=== PATIENT | female | born 2000 | race Caucasian/White ===

== ENCOUNTER 2025-06-07 11:01 | Outpatient (AMB) | payer BC, SELFPAY ==
--- NOTE | 2025-06-07 11:19 | OBCLNT_ITS ---
Vital Signs 06/07/25 11:27 Height 1.55 m Height Method Stated Weight 106.764 kg Weight Measurement Method Standing Scale BMI 44.4 BP 118/79 Blood Pressure Source Automatic Cuff Blood Pressure Location Left Upper Arm Position Sitting Respiration 16 Pulse 72 Pulse Source Monitor Temp 98 F Temp Source Oral Pulse Oximetry (%) 98 Oxygen Delivery Method Room Air Allergies/Home Meds Allergies & Medications Allergies No Known Allergies Allergy (Verified 06/10/25 10:59) Medication Reconciliation vits no.126-ferrous fum 28 mg iron-folic acid 800 mcg tablet (Classic ) 1 tab PO QDAY 90 days #90 tabs 06/07/25 [Rx Confirmed 06/10/25] Intake Visit Data Collection New Patient or Established: New Patient (never been to [facility]) Reason for Visit:: INITIAL CARE Seen by Clinical Staff ONLY (RN/MA): No Senior Energy Market Coordinator Required: No Do You Feel Safe at Home: Yes Authorities Contacted: N/A PCP or OBGYN visit in last 3 months: Yes Hx Now: Yes Are you currently on any form of Control: No Last menstrual period: 04/10/25 Pain Present Currently: No Pain Scale Used: Corbett-Ortega/Numerical Pain scale:: 0 Smoking Status Smoking Status: Never smoker Questionnaires Covid-19 Vaccine Questionnaire Has patient been vacinated for Covid-19 Have you been vacinated for Covid-19: Yes PHQ-9 PHQ-2 Over the last 2 weeks, how often have you been bothered by any of the following problems? 1. Little interest or pleasure in doing things: not at all 2. Feeling down, depressed, or hopeless: not at all Total score: 0 PHQ-9 3. Trouble falling or staying asleep, or sleeping too much: Not at all 4. Feeling tired or having little energy: Not at all 5. Poor appetite or overeating: Not at all 6. Feeling bad about yourself - or that you are a failure or have let yourself or your family down: Not at all 7. Trouble concentrating on things, such as reading the newspaper or watching television: Not at all 8. Moving or speaking so slowly that other people could have noticed? - Or the opposite - being so fidgety or restless that you have been moving around a lot more than usual: not at all 9. Thoughts that you would be better off or of hurting yourself in some way: Not at all Total score: 0 Source: Developed by Drs. En Coulter, Mariah Saunders, Nitin Mattson and colleagues, with an educational bobby from [facility]. Depression screen completed yes Social History Living Situation History Marital Status: Lives With: Family Housing: House Tobacco History Smoking Status: Never smoker Second Hand Smoke Exposure: No Alcohol History Alcohol Intake: Former Alcohol Intake Frequency: holidays/special occasions only Domestic Abuse History Do You Feel Safe at Home: Yes History of Present Illness HPI Narrative Chief Complaint Initial visit, last menstrual period April 09, feeling more tired, a little bit of cramping intermittently Jose Monreal is a 26-year-old at 8 weeks gestation, presenting for her initial visit. She reports a last menstrual period of April 09, making her approximately 8 weeks with an estimated due date in December of next year. The patient states she has not experienced many symptoms thus far. She reports feeling more tired than usual. She denies nausea and vomiting. She mentions experiencing mild cramping, which occurs intermittently for about 30 seconds at a time and does not feel like menstrual cramps. She notes that these cramps do not occur daily. This is her first , and she has not reported any significant concerns or complications at this time. She reports that her menstrual cycles were generally regular, though she mentions being a little bit late in January through March, around the time of conception. Obstetric History: - GPAL: A0 L0 - Current : Gestational age 8 weeks by last menstrual period, last menstrual period April 09, 2025, estimated due date December 2025 Medications: - vitamins Social History: - OB Initial Visit Menstrual History Menstrual reliability: definite Flow: normal Menstrual regularity: regular Monthly: Yes Age at menarche: 13 On control pills at conception: No Associated symptoms (LMP): Reports fatigue, breast tenderness and bloating OB History : 1 # of Living Children: 0 Infection History & Risk Evaluation History of STDs: none Genetic Screening & History Genetic Screening/Teratology Counseling - Includes patient, baby's father, or anyone in either family with: 1. Patient's age 35 years or older as of estimated date of delivery: No 2. Thalassemia (Divehi, Irish, Mediterranean, or Background); MCV less than 80: No 3. Neural Tube Defect (Meningomyelocele, Spina Bifida, or Anencephaly): No 4. Congenital Heart Defect: No 5. Down Syndrome: No 6. Aaron-Sachs (Ashkenazi Denominational, Cajun, Belarusian Chilean): No 7. Virige Disease (Ashkenazi Denominational): No 8. Familial Dysautonomia (Ashkenazi Denominational): No 9. Sickle Cell Disease or Trait (): No 10. Hemophilia or other blood disorders: No 11. Muscular Dystrophy: No 12. Cystic Fibrosis: No 13. [place]'s Chorea: No 14. Mental Retardation/Autism: No 15. Other inherited genetic or chromosomal disorder: No 16. Maternal Metabolic Disorder (EG,TYPE 1 Diabetes, PKU): No 17. Patient or baby's father had a child with defects not listed above: No 18. Recurrent loss or a stillbirth: No 19. Medications (including supplements, vitamins, herbs or otc drugs)/illicit/recreational drugs/alcohol since last menstrual period: No 20. Any other: No Infection History 1. Live with someone with TB or exposed to TB: No 2. Rash or viral illness since last menstrual period: No 3. Hepatitis B,C: No Other (see comments) Source: [employer] Review of Systems Constitutional Constitutional: Reports fatigue Gastrointestinal Gastrointestinal: Reports bloating Endocrine Endocrine: Reports fatigue Exam General General Appearance: alert, in no apparent distress and healthy appearing Head Head exam: atraumatic Neck Neck exam: Present normal inspection and trachea midline Chest Chest inspection: Present normal inspection and symmetric chest wall rise External exam: Present normal external exam; Absent tenderness Neuro Neurological exam: Present oriented X3 Psych Psychiatric exam: Present normal affect and normal mood Office Procedures OB Clinic LOC & Office Proc's Nursing/Assessment Patient Status: Established Patient OB Clinic Nursing Assessment: Medication Reconciliation, Update PMH in EMR and Vital Signs OB Clinic Coordination of Care: Complex Care and Chronic Disease 1-5, Consent,records obtained, informed consent, Education Simp Pt/Fam, Lab and Imaging orders, Results/Orders obtained and Staff clarify orders Special Needs: Heart tones Established Patient Charge Established Patient Point Assignment: 135 Established Patient Point Charge: EP Level 4 (120-155) Assessment & Plan Diagnosis / Problem List (1) Supervision of high risk , unspecified, first trimester: Status: Acute (2) Uterine size date discrepancy: Status: Acute Plan Intrauterine Assessment: Patient reports last menstrual period on April 09, consistent with gestational age of 8 weeks. Initial bedside ultrasound showed sac and pole with heartbeat, though image quality was suboptimal. Patient reports mild fatigue and intermittent cramping lasting approximately 30 seconds, which is consistent with normal implantation cramping. Denies nausea, vomiting, or other concerning symptoms. Plan: - Formal ultrasound ordered today to confirm gestational age and viability - Telephone appointment scheduled for Tuesday to review ultrasound results - Initial labs ordered - vitamins prescribed, sent to [facility] - Genetic screening to be performed at 9 weeks gestation - Patient educated on normal early symptoms, including implantation cramping
[2025-06-07 11:27] VITALS: BP 118/79; PULSE 72; RESP 16; TEMP 36.6; O2SAT 98; BMI 44.4
== END 2025-06-07 11:55 | disposition home or self-care (01) ==
LOC: HODSOBC 11:01
PROVIDERS: Supervising Provider Obstetrics & Gynecology; Visit Provider Obstetrics & Gynecology
DX: O09.891 Supervision of other high risk pregnancies, first trimester (principal); O26.841 Uterine size-date discrepancy, first trimester; Z3A.08 8 weeks gestation of pregnancy
CPT/HCPCS: 99214; G0463

== ENCOUNTER → 2025-06-07 | Outpatient (CLI) | payer BC, SELFPAY ==
--- NOTE | 2025-06-07 12:32 | XR_ITS ---
Examination: Complete OB ultrasound, less than 14 weeks, transabdominal Date and time of exam: June 07, 2025 1251 hours INDICATIONS: with size dates discrepancy history Technique: Obstetrical ultrasound images less than 14 weeks performed via transabdominal imaging Findings: A normal shaped single intrauterine gestation is present in the uterus. CRL 1.0 cm corresponds to 7 weeks 1 day gestational age Cardiac motion 162 BPM Ultrasonographic survey of visible and placental structures unremarkable. Amniotic fluid volume appears appropriate for this estimated gestational age. Right ovary 4.4 cm arterial flow Left ovary 3.9 cm arterial flow IMPRESSION: Viable intrauterine gestation 7 weeks 1 day.
== END | disposition home or self-care (01) ==
LOC: CDIM 12:17
PROVIDERS: Referring Provider Obstetrics & Gynecology; Visit Provider Obstetrics & Gynecology
DX: O26.849 Uterine size-date discrepancy, unspecified trimester (principal); O09.91 Supervision of high risk pregnancy, unspecified, first trimester; Z3A.01 Less than 8 weeks gestation of pregnancy
CPT/HCPCS: 76801

== ENCOUNTER 2025-06-10 10:58 | Outpatient (AMB) | payer BC, SELFPAY ==
--- NOTE | 2025-06-10 10:59 | AMB.GYNCLNOT ---
Allergies/Home Meds Allergies & Medications Allergies No Known Allergies Allergy (Verified 06/10/25 10:59) Medication Reconciliation vits no.126-ferrous fum 28 mg iron-folic acid 800 mcg tablet (Classic ) 1 tab PO QDAY 90 days #90 tabs 06/07/25 [Rx Confirmed 06/10/25] Intake Visit Data Collection New Patient or Established: Established Patient (seen at [facility] within 3 years) Reason for Visit:: LAB RESULTS Seen by Clinical Staff ONLY (RN/MA): No Toolroom Machinist Required: No Do You Feel Safe at Home: Yes Authorities Contacted: N/A PCP or OBGYN visit in last 3 months: Yes Date of Last PCP or OBGYN visit: 06/07/25 Hx Now: Yes Are you currently on any form of Control: No Pain Present Currently: No Pain Scale Used: Corbett-Ortega/Numerical Pain scale:: 0 Smoking Status Smoking Status: Never smoker For Telemed visit only Telemed Video/Phone Visit: Yes Verbal consent obtained for Telemed visit?: Yes Verbal Consent witness name: SVETLANA LUNAIERREZ/MARCELA LEMA Head Refrigeration Engineer history Head Refrigeration Engineer History Menstrual regularity: regular Flow: normal Monthly: Yes How many days does period last: 5 Age at menarche: 14 Menopausal: No Currently sexually active: Yes Questionnaires Covid-19 Vaccine Questionnaire Has patient been vacinated for Covid-19 Have you been vacinated for Covid-19: Yes PHQ-9 PHQ-2 Over the last 2 weeks, how often have you been bothered by any of the following problems? 1. Little interest or pleasure in doing things: not at all 2. Feeling down, depressed, or hopeless: not at all Total score: 0 PHQ-9 3. Trouble falling or staying asleep, or sleeping too much: Not at all 4. Feeling tired or having little energy: Not at all 5. Poor appetite or overeating: Not at all 6. Feeling bad about yourself - or that you are a failure or have let yourself or your family down: Not at all 7. Trouble concentrating on things, such as reading the newspaper or watching television: Not at all 8. Moving or speaking so slowly that other people could have noticed? - Or the opposite - being so fidgety or restless that you have been moving around a lot more than usual: not at all 9. Thoughts that you would be better off or of hurting yourself in some way: Not at all Total score: 0 If you checked off any problems, how difficult have these problems made it for you to do your work, take care of things at home, or get along with other people?: not difficult at all Source: Developed by Drs. En Coulter, Mariah Saunders, Nitin Mattson and colleagues, with an educational bobby from [facility]. Depression screen completed yes Social History Living Situation History Lives With: Family Housing: House Tobacco History Smoking Status: Never smoker Second Hand Smoke Exposure: No Alcohol History Alcohol Intake: Former Alcohol Intake Frequency: holidays/special occasions only Domestic Abuse History Do You Feel Safe at Home: Yes History of Present Illness HPI Narrative Jose Monreal presents for a return visit via telephone for confirmation of gestational dates. She recently had an ultrasound on 06/07/2025 that placed her at 7 weeks and 1 day gestation with heart tones of 162 beats per minute. Today, she is 7 weeks and 4 days based on the ultrasound dating. Due to a discrepancy of more than 7 days between the last menstrual period dating and the ultrasound dating, the estimated due date has been established based on the ultrasound findings. The patient's new estimated due date is January 23, 2026. She has an obstetric history of A0 L0. The patient has been taking vitamins. ROS: Negative except as stated above, limited to BILINGUAL CUSTOMER SERVICE and pertinent complaints. Exam Narrative Physical exam: Telephone visit Office Procedures OB Clinic LOC & Office Proc's Nursing/Assessment Patient Status: Established Patient OB Clinic Nursing Assessment: Medication Reconciliation and Update PMH in EMR OB Clinic Coordination of Care: Consent,records obtained, informed consent, Education Simp Pt/Fam, Lab and Imaging orders, Ref for ancillary service and Staff clarify orders Established Patient Charge Established Patient Point Assignment: 90 Telehealth If patient is seen using Teleconference methods, complete New/Est section, but DO NOT kamala points only kamala the correct Telemed visit type Telemed Phone/Video with patient at home & Dr,PA,DIRECTOR EMBALMER: Yes Assessment & Plan Diagnosis / Problem List (1) Uterine size date discrepancy: Status: Acute (2) Supervision of high risk , unspecified, first trimester: Status: Acute Plan Intrauterine : - Viable intrauterine measuring 7 weeks and 4 days gestation. - Ultrasound on 06/07/2025 showed heart tones of 162 beats per minute. - FRANCISCO established based on ultrasound dating due to discrepancy with last menstrual period dating per ACOG criteria. Plan: - Establish FRANCISCO as 01/23/2026 based on ultrasound dating. - Order routine labs: ? Complete now ? Includes tests for anemia, infections, and antibodies - Order genetic screening: ? Complete after 9 weeks gestation ? Includes screening for Down syndrome and sex determination - Continue vitamins. - Schedule follow-up appointment in 4 weeks.
== END 2025-06-10 11:02 | disposition home or self-care (01) ==
LOC: HODSOBC 10:58
PROVIDERS: Supervising Provider Obstetrics & Gynecology; Visit Provider Obstetrics & Gynecology
DX: O09.891 Supervision of other high risk pregnancies, first trimester (principal); O26.841 Uterine size-date discrepancy, first trimester; Z3A.01 Less than 8 weeks gestation of pregnancy
CPT/HCPCS: 99212; G0463